=== PATIENT | female | born 1995 | race Caucasian/White ===

== ENCOUNTER 2020-09-15 10:14 | Emergency (ER) | payer OTHER ==
[2020-09-15] MEDS ORDERED: CYCLOBENZAPRINE10 MG PO (11:54)
[2020-09-15] MEDS ORDERED: NAPROSYN500 MG PO (11:54)
== END 2020-09-15 12:28 | disposition home or self-care (01) ==
LOC: ER1 10:14
DX: S09.90XA Unspecified injury of head, initial encounter (principal); S16.1XXA Strain of muscle, fascia and tendon at neck level, initial encounter; V43.52XA Car driver injured in collision with other type car in traffic accident, initial encounter; Y92.410 Unspecified street and highway as the place of occurrence of the external cause
CPT/HCPCS: 70450; 72125; 96372; 99283